=== PATIENT | female | born 1980 | race Caucasian/White ===

== ENCOUNTER 2017-11-10 23:42 | Emergency (ER) | payer SELFPAY ==
[~2017-11-10] VITALS: Ht 160 cm; Wt 54.4 kg
[2017-11-10] MEDS ORDERED: NKM (23:53)
[2017-11-11] VITALS: BP 112/66
[2017-11-11] MEDS ORDERED: Lactulose 20gm/30ml UDC ORAL ONE ×2 (00:15→05:45)
--- NOTE | 2017-11-11 00:18 | Emergency Room Report ---
History of Present Illness General Chief Complaint: Constipation Source: Patient Present Illness HPI Patient presents with constipation for 5 days. She has been moving her bowels but is been hard and thin. Stool has been dark in color but not black. She denies any blood. She's been taking MiraLAX. She's vomited twice in the last 5 days. She's been feeling nauseated. She doesn't feel nauseated now. She denies any fevers. She's never had abdominal surgery. The constipation is a chronic problem and she remembers her father making her drink prune juice while sitting on the toilet. She also believes that she has irritable bowel syndrome. Her last period was normal and was last week. She states "I am not ." She denies any dysuria or hematuria. 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 She had this problem one time before took ex-lax with results. She does not self-induce vomiting and does not routinely use laxatives. No URI sy, joint pain, rashes, vaginal discharge. There is no pelvic pain. 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 Last Menstrual Period: 11/07/17 Now: No Reviewed Nursing Documentation: PMH: Agreed; PSxH: Agreed Nursing Documentation-PMH Past Medical History: No Stated History Review of Systems All Other Systems: negative except mentioned in HPI Physical Exam Vital Signs Date Time Temp Pulse Resp B/P (MAP) Pulse Ox O2 Delivery O2 Flow Rate FiO2 11/10/17 23:47 98.1 80 16 112/66 98 Room Air 98.1 Sp02 EP Interpretation: reviewed, normal General Appearance: well appearing, no apparent distress, GCS 15 Head: normocephalic Eyes: bilateral eye normal inspection ENT: moist mucus membranes Neck: supple Respiratory: lungs clear, normal breath sounds Cardiovascular #1: regular rate, rhythm Cardiovascular #2: 2+ radial (R) Gastrointestinal: normal inspection, normal bowel sounds, non tender, distended , other - somewhat tympanitic Genitourinary: no CVA tenderness Musculoskeletal: back normal, gait/station normal, normal range of motion Neurologic: alert, oriented x3, grossly normal Psychiatric: anxious Skin: normal inspection, warm/dry Medical Decision Making Diagnostic Impression: Primary Impression: Constipation Qualified Codes: K59.00 - Constipation, unspecified Additional Impressions: Nausea & vomiting Qualified Codes: R11.2 - Nausea with vomiting, unspecified Early stage of ER Course Patient presents with constipation. Differential includes constipation, dehydration, electrolyte abnormality amongst others. The patient be evaluated with a urinalysis, urine and labs including abdominal film. The patient will be given lactulose. Patient unable to give urine. Patient vomited first dose of lactulose. No blood Labs unremarkable (normal WBC and CMP). Abdominal films not normal (gas filled small bowel loops - also gas in colon) and patient vomiting here. CT abdomen ordered. Zofran given. CT with ileus and uterine cystic material, unilateral renal fibrosis. Magnesium citrate ordered. She then requested repeat lactulose instead. Patient gave urine and test is +. Patient with another person than the father here. Requested discussion with him not in room. Discussion with patient regarding + . She requested immediate treatment for termination ("I cannot have a child at this time in my life."). I told her she needed to follow up with clinic to be able to have this done. Clinic options were discussed with the patient. The patient also insisted that the diagnosis of not be listed on the discharge paperwork as it would cause problems with the person she is with. Labs also given to patient in sealed envelope. Patient improved and stable for outpatient observation and treatment. Laboratory Tests Test 11/11/17 00:20 White Blood Count 10.3 K/UL (4.8-10.8) Red Blood Count 5.01 M/UL (4.20-5.40) Hemoglobin 15.6 G/DL (12.0-16.0) Hematocrit 43.8 % (37.0-47.0) Mean Corpuscular Volume 87 FL (80-99) Mean Corpuscular Hemoglobin 31.1 PG (27.0-31.0) H Mean Corpuscular Hemoglobin Concent 35.6 G/DL (32.0-36.0) Red Cell Distribution Width 10.1 % (11.6-14.8) L Platelet Count 284 K/UL (150-450) Mean Platelet Volume 7.8 FL (6.5-10.1) Neutrophils (%) (Auto) 68.3 % (45.0-75.0) Lymphocytes (%) (Auto) 22.8 % (20.0-45.0) Monocytes (%) (Auto) 6.9 % (1.0-10.0) Eosinophils (%) (Auto) 1.1 % (0.0-3.0) Basophils (%) (Auto) 1.0 % (0.0-2.0) Sodium Level 140 MMOL/L (136-145) Potassium Level 3.5 MMOL/L (3.5-5.1) Chloride Level 104 MMOL/L (98-107) Carbon Dioxide Level 27 MMOL/L (21-32) Anion Gap 9 mmol/L (5-15) Blood Urea Nitrogen 11 mg/dL (7-18) Creatinine 0.7 MG/DL (0.55-1.30) Estimate Glomerular Filtration Rate > 60 mL/min (>60) Glucose Level 102 MG/DL (74-106) Calcium Level 8.7 MG/DL (8.5-10.1) Total Bilirubin 0.6 MG/DL (0.2-1.0) Aspartate Amino Transferase (AST) 15 U/L (15-37) Alanine Aminotransferase (ALT) 17 U/L (12-78) Alkaline Phosphatase 71 U/L (46-116) Total Protein 7.4 G/DL (6.4-8.2) Albumin 3.7 G/DL (3.4-5.0) Globulin 3.7 g/dL Albumin/Globulin Ratio 1.0 (1.0-2.7) Lipase 220 U/L (73-393) UA no pyuria, preg + Quant 88,514 Other X-Ray Diagnostic Results Other X-Ray Diagnostic Results : X-Ray ordered: abd # of Views/Limited Vs Complete: 1 View Indication: Other EP Interpretation: Yes Interpretation: other - gas throughout small and large bowel with some dilitation, no free air, no masses Impression: Other Electronically Signed by: Osiel Santos MD CT/MRI/US Diagnostic Results CT/MRI/US Diagnostic Results : Imaging Test Ordered: abd Impression Ileus, stool, cystic structure uterus, L renal atrophy Last Vital Signs Date Time Temp Pulse Resp B/P (MAP) Pulse Ox O2 Delivery O2 Flow Rate FiO2 11/11/17 06:56 98.8 103 14 125/88 100 Room Air 98.8 Status: improved Disposition: HOME, SELF-CARE Condition: Improved Scripts Lactulose (LACTULOSE*) 20 Gm/30 Ml Solution 30 ML ORAL BID PRN for Constipation, #120 ML 1 Refill Prov: Osiel Santos M.D. 11/11/17 Promethazine Hcl* (PHENERGAN*) 25 Mg Tablet 25 MG ORAL Q8HR PRN for Nausea & Vomiting, #10 TAB 0 Refills Prov: Osiel Santos M.D. 11/11/17 Referrals: NOT CHOSEN JAE/,REFERRING (PCP) Osiel Santos M.D. Nov 11, 2017 00:18
[2017-11-11 01:08] LABS: EOSINOPHILS % (AUTO) 1.1 % (0.0-3.0); HEMATOCRIT 43.8 % (37.0-47.0); HEMOGLOBIN 15.6 G/DL (12.0-16.0); LYMPHOCYTES % (AUTO) 22.8 % (20.0-45.0); MEAN CORPUSCULAR VOLUME 87 FL (80-99); MONOCYTES % (AUTO) 6.9 % (1.0-10.0); NEUTROPHILS % (AUTO) 68.3 % (45.0-75.0); PLATELET COUNT 284 K/UL (150-450); RED BLOOD COUNT 5.01 M/UL (4.20-5.40); RED CELL DISTRIBUTION WIDTH 10.1 % (11.6-14.8); WHITE BLOOD COUNT 10.3 K/UL (4.8-10.8)
[2017-11-11 01:14] LABS: ANION GAP 9 mmol/L (5-15); BLOOD UREA NITROGEN 11 mg/dL (7-18); CALCIUM 8.7 MG/DL (8.5-10.1); CARBON DIOXIDE 27 MMOL/L (21-32); CHLORIDE 104 MMOL/L (98-107); CREATININE 0.7 MG/DL (0.55-1.30); POTASSIUM 3.5 MMOL/L (3.5-5.1); SODIUM 140 MMOL/L (136-145)
[2017-11-11 01:18] LABS: ALANINE AMINOTRANSFERASE 17 U/L (12-78); ALBUMIN 3.7 G/DL (3.4-5.0); ALKALINE PHOSPHATASE 71 U/L (46-116); ASPARTATE AMINO TRANSFERASE 15 U/L (15-37); BILIRUBIN,TOTAL 0.6 MG/DL (0.2-1.0)
[2017-11-11 03:11] VITALS: BP 111/70
[2017-11-11 04:41] VITALS: BP 124/70
[2017-11-11] MEDS ORDERED: Magnesium Citrate Liq Btl ORAL ONE (05:30)
[2017-11-11 05:44] LABS: BILIRUBIN, URINE NEGATIVE (NEGATIVE); COLOR,URINE PALE YELLOW; GLUCOSE, URINE (UA) NEGATIVE (NEGATIVE); KETONES,URINE NEGATIVE (NEGATIVE); LEUKOCYTE ESTERASE ,URINE 1+ (NEGATIVE); NITRITE,URINE NEGATIVE (NEGATIVE); PH,URINE 8 (4.5-8.0); PROTEIN,URINE NEGATIVE (NEGATIVE); UROBILINOGEN,URINE NORMAL MG/DL (0.0-1.0)
[2017-11-11 06:14] LABS: APPEARANCE,URINE CLEAR
[2017-11-11 06:43] VITALS: BP 125/88
[2017-11-11] MEDS ORDERED: LACTULOSE20 GM/301 ORAL (06:48)
[2017-11-11] MEDS ORDERED: PHENERGAN25 M1 ORAL (06:48)
[2017-11-11 06:56] VITALS: BP 125/88
--- NOTE | 2017-11-11 08:36 | Diagnostic Imaging Report ---
Indication: Abdominal pain Technique: CT of the abdomen and pelvis utilizing automated exposure control with intravenous contrast. Venous scanning performed. CT dose: Total DLP 612 mGycm; CTDI vol 12.8 mGy Comparison: None Findings: There is mild atelectasis in the lung bases. Liver, adrenal glands, spleen and pancreas are grossly unremarkable. No CT dense gallstones are identified. The left kidney is atrophic with cortical scarring especially in the upper pole. There is compensatory enlargement of the right kidney. There is limited evaluation for renal calculi with contrast in the renal collecting systems. There is a tiny hiatal hernia. The small bowel loops are normal in caliber. The appendix is normal. There is moderate stool throughout the colon. There is central heterogeneity within the uterus. There is no free intraperitoneal air. Bladder is grossly unremarkable. Abdominal aorta is normal in caliber. Impression: Normal appendix. Moderate colonic stool and clinical correlation recommended. Left renal atrophy with cortical scarring especially in the upper pole. Central heterogeneity within the uterus, nonspecific. Findings could represent underlying submucosal fibroid or endometrial pathology including polyp or fluid/hemorrhage in the endometrial cavity. Correlation with ultrasound recommended. The CT scanner at [facility] is accredited by the [employer] and the scans are performed using protocols designed to limit radiation exposure to as low as reasonably achievable to attain images of sufficient resolution adequate for diagnostic evaluation.
--- NOTE | 2017-11-11 08:56 | Diagnostic Imaging Report ---
Indication: Abdominal pain Technique: XRAY Abdomen 1v Comparison: None Findings: Bowel gas pattern is nonobstructive. Gas and stool are noted in the colon which is mildly distended. Impression: Nonobstructive bowel gas pattern. Gas and stool noted in mildly distended colon. Clinical correlation recommended.
== END 2017-11-11 06:56 | disposition home or self-care (01) ==
LOC: EMR 23:59
DX: K59.00 Constipation, unspecified (principal); R11.2 Nausea with vomiting, unspecified; Z32.01 Encounter for pregnancy test, result positive
CPT/HCPCS: 36415; 74018; 74177; 80053; 81003; 81025; 83690; 84702; 85025; 96361; 96374; 99284; J2405; Q9967